=== PATIENT | female | born 1945 | race Caucasian/White ===

== ENCOUNTER 2021-09-11 09:24 | Emergency (ER) | payer OTHER, BC ==
[~2021-09-11] VITALS: Ht 157.5 cm; Wt 50.8 kg
[2021-09-11] MEDS ORDERED: ZESTRIL20 MG PO (09:53)
== END 2021-09-11 14:43 | disposition home or self-care (01) ==
LOC: ER 09:24
DX: M79.89 Other specified soft tissue disorders (principal)